=== PATIENT | male | born 1945 | race Caucasian/White ===

== ENCOUNTER 2017-11-16 07:25 | Observation (INO) | payer MEDICARE ==
[2017-11-14 14:49] LABS: BASOPHILS # (AUTO) 0.2 (0.0-0.1); BASOPHILS % 1.6 % (0.0-1.0); EOSINOPHILS # (AUTO) 0.2 (0.0-0.4); EOSINOPHILS % 1.9 % (0.0-6.0); LYMPHOCYTES # (AUTO) 1.6 (1.0-3.2); MEAN CORPUSCULAR HEMOGLOBIN 31.3 pg (28-32); MEAN CORPUSCULAR HGB CONC 33.3 g/dL (31-35); MEAN CORPUSCULAR VOLUME 93.8 fL (81-99); MONOCYTES # (AUTO) 1.4 (0.2-0.8); MONOCYTES % 11.5 % (4.4-11.3); NEUTROPHILS # (AUTO) 8.7 (2.1-6.9); PLATELET COUNT 253 x10e3/uL (140-360); RED BLOOD COUNT 4.16 x10e6/uL (4.3-5.7); RED CELL DISTRIBUTION WIDTH 14.8 % (11.7-14.4)
--- NOTE | 2017-11-14 14:50 | Diagnostic Imaging Report ---
PROCEDURE: Frontal and lateral views of the chest. COMPARISON: Patients [facility], CT, CT CHEST WO, 05/30/2017, 12:33. INDICATIONS: PRE-OP FINDINGS: Lines/tubes: None. Lungs: The lungs are slightly hypo-inflated and grossly clear. There is no evidence of pneumonia or pulmonary edema. Pleura: There is no pleural effusion or pneumothorax. Heart and mediastinum: Cardiac silhouette is unremarkable. Pulmonary vasculature is normal. Bones: No acute bony abnormality. IMPRESSION: 1. No acute cardiopulmonary abnormalities. Asher Honeycutt M.D. Dictated by: Asher Honeycutt M.D. on 11/14/2017 at 14:50 Electronically approved by: Asher Honeycutt M.D. on 11/14/2017 at 14:50
[2017-11-14 15:24] LABS: PROTHROMBIN TIME 12.4 seconds (11.9-14.5)
[2017-11-14 15:25] LABS: PARTIAL THROMBOPLASTIN TIME 28.6 seconds (23.8-35.5)
[2017-11-14 15:32] LABS: ANION GAP 18.9 mmol/L (8-16); CALCIUM 8.8 mg/dL (8.4-10.2); CREATININE, SERUM 1.39 mg/dL (0.72-1.25); POTASSIUM 3.9 mmol/L (3.5-5.1)
[~2017-11-16] VITALS: Ht 170.2 cm; Wt 86.2 kg
[~2017-11-16 07:25] MED LIST: ASPIRIN81 MG PO; BENADRYL25 MG PO; CYMBALTA30 MG PO; FOLIC ACID1 MG PO; LANSOPRAZOLE30 MG PO; LEFLUNOMIDE20 MG PO; METHOTREXATE2.5 MG PO; NIASPAN1000 MG; NORVASC10 MG PO; PREDNISONE5 MG PO; TYLENOL; VANCOMYCIN 1GM/NS 250 ML 250 ML ONE
[2017-11-16] MEDS ORDERED: BUPIVACAINE 0.5%/EPI 30 ML SDV INJ ONE (07:26)
[2017-11-16] MEDS ORDERED: GELATIN SPONGE SZ 100 ONE (07:26)
[2017-11-16] MEDS ORDERED: THROMBIN FOR SOLN 5,000 UNIT VIAL ONE (07:26)
[2017-11-16] MEDS ORDERED: BACITRACIN 50,000 UNIT VIAL ONE (07:26)
--- OUTSIDE RECORDS SUMMARY | 2017-11-16 07:27 | XMS REPORT ---
[facility] Address Unknown Phone Unavailable Care Team Providers Care Lead Section Supervisor Name Role Phone JOHANA MANLEY Unavailable Unavailable ROSA MARIA WEBBER Unavailable Unavailable Problems This patient has no known problems. Allergies, Adverse Reactions, Alerts This patient has no known allergies or adverse reactions. Medications This patient has no known medications. Results Test Description Test Time Test Comments Text Results Atomic Results Result Comments CHEST 2 VIEWS [place] [address] Patient Name: MAYO AKBAR JR MR #: [id number] : 1945 Age/Sex: 72/M Req #: [id number] Adm Physician: Ordered by: JOHANA MANLEY MD Report #: [id number] Location: OR Room/Bed: Procedure: [id number] DX/CHEST 2 VIEWS Exam Date: 11/14/17 Exam Time: 1415 REPORT STATUS: Signed PROCEDURE: Frontal and lateral views of the chest. COMPARISON: [facility], CT, CT CHEST WO, 05/30/2017, 12:33. INDICATIONS: PRE-OP FINDINGS: Lines/tubes: None. Lungs: The lungs are slightly hypo-inflated and grossly clear. There is no evidence of pneumonia or pulmonary edema. Pleura: There is no pleural effusion or pneumothorax. Heart and mediastinum: Cardiac silhouette is unremarkable. Pulmonary vasculature is normal. Bones: No acute bony abnormality. IMPRESSION: 1. No acute cardiopulmonary abnormalities. Ana Maria Honeycutt M.D. Dictated by: Ana Maria Honeycutt M.D. on 11/14/2017 at 14:50 Electronically approved by: Ana Maria Honeycutt M.D. on 11/14/2017 at 14:50 Dictated By: ANA MARIA HONEYCUTT MD 145 Transcribed By: KENTON on 11/14/17 145 COPY TO: JOHANA MANLEY MD CT CHEST WO [place] [address] Patient Name: MAYO AKBAR JR MR #: [id number] : 1945 Age/Sex: 71/M Req #: [id number] Adm Physician: Ordered by: ROSA MARIA WEBBER MD Report #: [id number] Location: CT Room/Bed: _ Procedure: [id number] CT/CT CHEST WO Exam Date: 05/30/17 Exam Time: 1243 REPORT STATUS: Signed PROCEDURE: CT CHEST WITHOUT CONTRAST CT scan of the chest WITHOUT intravenous contrast, using standard protocol. TECHNIQUE: The chest was scanned utilizing a multidetector helical scanner from the apex to the level of the adrenal glands. No IV contrast was administered per physician request. Coronal and sagittal multiplanar reformations were obtained. COMPARISON: CT chest 06/11/2014.. INDICATIONS: RIGHT UPPER EXTREMITY LYMPHADEMA FINDINGS: Lines/tubes: None. Lungs and Airways: Scattered mild nonspecific groundglass opacities in the right upper lobe. Previous left apical pleural-parenchymal scarring is unchanged. Slight increased right parenchymal scarring in the lung apex. Bilateral lower lobe atelectasis with bronchial wall thickening is more pronounced compared to prior examination. 4.4 mm nodule in the right lower lobe laterally (series 3 image 57). Previously 3.1 mm. Pleura: The pleural spaces are clear. Heart and mediastinum: The thyroid gland is normal. The no axillary lymphadenopathy. 1.2 cm precarinal lymph node (series 2 image 38, previously 1.1 cm. Multiple other smaller mediastinal lymph nodes. 1.1 cm subcarinal lymph node (series 2 image 49), previously 0.8 cm. The heart and pericardium are within normal limits. Severe traversal coronary artery calcifications. Soft tissues: Normal. Abdomen: Limited views of the upper abdomen show no abnormality within the visualized liver, spleen, pancreas, or kidneys. The adrenal glands are normal. Bones: The visualized bony thorax is within normal limits. IMPRESSION: 1. Slight increase in bronchial wall thickening and nonspecific groundglass opacities in the right upper lobe, likely infectious/post infectious in etiology. 2. Slight increase in 4.4 mm right lower lobe pulmonary nodule, previously 3.1 mm in 2014. 3. Slight increase size of mediastinal lymph nodes, which can be seen with recent infection. Dictated by: Wilmer Paredes M.D. on 05/30/2017 at 13:08 Electronically approved by: Wilmer Paredes M.D. on 05/30/2017 at 13:08 Dictated By: WILMER PAREDES MD 1308 Transcribed By: KENTON on 05/30/17 1308 COPY TO: ROSA MARIA WEBBER MD
[2017-11-16] MEDS ORDERED: LIDOCAINE HCL (LTA) 4 ML SOLN ONE (07:37)
[2017-11-16] MEDS ORDERED: ACETAMINOPHEN 1000 MG/100 ML 100 ML IV ONE (07:37)
[2017-11-16] MEDS: LACTATED RINGER'S 1,000 ML IV SCH ×2 (09:28→17:48)
[2017-11-16] MEDS ORDERED: VANCOMYCIN 1GM/NS 250 ML 250 ML IV SCH (09:30)
[2017-11-16] MEDS ORDERED: HYDROMORPHONE 2MG/ML INJ IV PRN (09:30)
[2017-11-16] MEDS ORDERED: CARISOPRODOL 350 MG TAB PO PRN (09:30)
[2017-11-16] MEDS ORDERED: PROMETHAZINE HCL (IM) 25 MG/ML VIAL IM PRN (09:30)
[2017-11-16] MEDS ORDERED: ZOLPIDEM TARTRATE 5 MG TAB PO PRN (09:30)
[2017-11-16] MEDS ORDERED: ONDANSETRON HCL INJ 2 MG/ML VIAL IV PRN (09:30)
[2017-11-16] MEDS ORDERED: MAGNESIUM/ALUMINUM/SIMETHICONE 30 ML UDC PO PRN (09:30)
[2017-11-16] MEDS ORDERED: MORPHINE SULFATE 5 MG/ML VIAL IM PRN (09:30)
[2017-11-16] MEDS ORDERED: ACETAMINOPHEN 325 MG TAB PO PRN (09:30)
[2017-11-16] MEDS ORDERED: CEPACOL SORE THROAT LOZENGES PO PRN (09:30)
[2017-11-16 10:00] VITALS: BP 153/79
[2017-11-16 11:06] VITALS: BP 153/79
[2017-11-16] MEDS: OXYCODONE/ACETAMINOPHEN 5-325 1 EACH TABLET PO PRN ×2 (11:30→18:35)
[2017-11-16 12:00] VITALS: BP 149/84
--- NOTE | 2017-11-16 15:10 | Operative Report ---
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 PROCEDURES 1. C3-C4 anterior cervical diskectomy, microsurgical osteophyte resection and allograft fusion, 82424. 2. Preparation of [employer] cortical cancellous allograft, 27633. 3. C3-C4 anterior cervical plating with Synthes ZPN plate, 35920. ANESTHESIA: General. INDICATIONS: The patient is a man who presents with C3-C4 spondylosis, chronic disk herniation, bilateral foraminal stenosis and central stenosis. He was taken to the operating room for C3-C4 anterior cervical decompression and fusion. PROCEDURE: After induction of general anesthesia, the patient was placed on the operating table in the supine position. The right side of the neck was prepped and draped in sterile fashion. The fluoroscopic C-arm was positioned in cross-table lateral orientation. A transverse incision was created on right side of the neck superimposed on the C3-C4 disk space as determined by fluoroscopy. The platysma was divided in line with the incision. A subplatysmal dissection was carried out. An avascular plane of dissection was developed medial to the sternocleidomastoid muscle and was followed medial to the carotid sheath to the anterior border of the cervical spine. The deep cervical fascia was opened. The esophagus was retracted to the left. The attachments of the longus coli muscles to the anterolateral aspects of the vertebral bodies of C3 and C4 were divided. The anterior longitudinal ligament was resected. Sturgis posts were inserted into C3 and C4. The Sturgis distractor was used to distract the disk space. The anterior annulus of the disk was incised a #11 blade. The contents of the C3-C4 disk were thoroughly evacuated with angled curets and pituitary rongeurs. The posterior osteophytes were meticulously drilled with a 2-mm cutting bur on a high-speed drill until they were completely removed. The posterior annulus of the disk, chronically herniated disk material and the posterior longitudinal ligament were resected layer by layer until the dura was fully exposed and decompressed. The medial aspects of the uncinate processes were resected bilaterally to further expose and decompress the origins of the corresponding nerve roots. After satisfactory decompression had been achieved, the endplates were prepared for fusion. The disk space was sized and found to be 7 mm in height. A piece of MTF cortical cancellous allograft measuring 7 mm was selected and prepared in saline and loaded onto a Synthes ZPN plate. The construct was inserted into the C3-4 disk space under distraction and fluoroscopic guidance. The distraction was released. The plate was screwed to the endplates of C3 and C4 with 2 pairs of 14-mm screws. All screws were locked. The wound was copiously irrigated with Bacitracin solution. Hemostasis was secured. The platysma was closed with 3-0 Vicryl sutures. The skin was closed with 4-0 Monocryl sutures in subcuticular fashion. Steri-Strips and dressing were applied. The patient was awakened, extubated and taken to the postanesthesia care unit in stable condition. No intraoperative complications were encountered. Estimated blood loss was 10 mL. Job#: [id number]
[2017-11-16 16:33] VITALS: BP 157/86
[2017-11-16] MEDS ORDERED: NON-FORMULARY MEDICATION (Lansoprazole 30 MG) PO SCH (17:00)
[2017-11-16] MEDS ORDERED: DULOXETINE HCL 30 MG DELAYED RELEASE PO SCH (17:00)
[2017-11-16] MEDS: VANCOMYCIN 1GM/NS 250 ML 250 ML IV SCH (18:01)
[2017-11-16] MEDS ORDERED: PROPOFOL IV EMULSION 10 MG/ML 20 ML VIAL ONE (18:08)
[2017-11-16] MEDS ORDERED: ACETAMINOPHEN 1000 MG/100 ML IV ONE (18:08)
[2017-11-16] MEDS ORDERED: DEXAMETHASONE SOD PHOS INJ 4 MG/ML VIAL ONE (18:08)
[2017-11-16] MEDS ORDERED: ROCURONIUM BROMIDE 10 MG/ML 5ML VIAL ONE (18:08)
[2017-11-16] MEDS ORDERED: SEVOFLURANE INHAL SOLN 250 ML PEN BTL ONE (18:08)
[2017-11-16] MEDS ORDERED: ONDANSETRON HCL INJ 2 MG/ML VIAL ONE (18:08)
[2017-11-16] MEDS ORDERED: LIDOCAINE HCL 2% LOCAL INJ 5 ML SDV VIAL INJ ONE (18:08)
[2017-11-16] MEDS ORDERED: FENTANYL CITRATE/PF 100MCG/2 ML INJ ONE (18:54)
[2017-11-16] MEDS ORDERED: MIDAZOLAM HCL 2 MG/2 ML VIAL ONE (18:54)
[2017-11-16 20:00] VITALS: BP 152/87
[2017-11-16 20:32] VITALS: BP 152/87
[2017-11-16] MEDS ORDERED: DIPHENHYDRAMINE HCL 25 MG CAP PO SCH (21:00)
[2017-11-16] MEDS ORDERED: NON-FORMULARY MEDICATION (Leflunomide 20 MG) PO SCH (21:00)
[2017-11-17] VITALS: BP 160/88
[2017-11-17] MEDS: LACTATED RINGER'S 1,000 ML IV SCH (02:08)
[2017-11-17 04:00] VITALS: BP 138/75
[2017-11-17] MEDS: VANCOMYCIN 1GM/NS 250 ML 250 ML IV SCH (06:05)
--- NOTE | 2017-11-17 06:56 | Diagnostic Imaging Report ---
PROCEDURE: X-RAY CERVICAL SPINE, TWO VIEWS COMPARISON:None. INDICATIONS:s/p surgery FINDINGS: See conclusion. CONCLUSION: AP and lateral views of the cervical spine from the skull base to the top of T1 show postoperative changes at C3-4 with an anterior plate and screw construct/disc spacer. Hardware appears appropriately positioned. The visualized vertebral bodies are well-aligned with the exception of 3 mm degenerative anterolisthesis of C5 over C6 with associated degenerative disc changes at C5-6 and C6-7.. There is mild pre-vertebral soft-tissue swelling consistent with recent surgery. Dictated by: Kai Barnhart M.D. on 11/17/2017 at 6:57 Electronically approved by: Kai Barnhart M.D. on 11/17/2017 at 6:57
[2017-11-17] MEDS ORDERED: PANTOPRAZOLE SOD 40 MG TABEC PO SCH (07:30)
[2017-11-17 07:56] VITALS: BP 161/86
[2017-11-17] MEDS ORDERED: NORCO 7.5-3251 EACH PO (08:23)
[2017-11-17] MEDS ORDERED: FOLIC ACID 1 MG TAB PO SCH (09:00)
[2017-11-17] MEDS ORDERED: AMLODIPINE BESYLATE 10 MG TAB PO SCH (09:00)
[2017-11-17] MEDS ORDERED: LEFLUNOMIDE PO SCH (09:00)
[2017-11-17] MEDS ORDERED: ASPIRIN 81 MG CHEW TAB PO SCH (09:00)
== END 2017-11-17 09:24 | disposition home or self-care (01) ==
LOC: OR 07:25 → MED/SURG 09:53
PROVIDERS: ADMIT Neurological Surgery; ATTEND Neurological Surgery
DX: M50.11 Cervical disc disorder with radiculopathy, high cervical region (principal); I10 Essential (primary) hypertension; E78.5 Hyperlipidemia, unspecified; J45.909 Unspecified asthma, uncomplicated; Z87.891 Personal history of nicotine dependence; Z88.1 Allergy status to other antibiotic agents; Z88.0 Allergy status to penicillin; Z88.8 Allergy status to other drugs, medicaments and biological substances; Z88.2 Allergy status to sulfonamides; Z91.041 Radiographic dye allergy status
CPT/HCPCS: 20931; 22551; 22845; 36415; 71046; 72040; 77003; 80048; 85025; 85610; 85730; 86850; 86900; 88304; 88311; 93005; C1713 ×2; C9359; G0378 ×2; J1100; J2001; J2250; J2405; J3370 ×2; J2270

== ENCOUNTER → 2017-12-18 | Outpatient (CLI) | payer MEDICARE ==
[~2017-12-18] MED LIST changes: +NORCO 7.5-3251 EACH PO; -VANCOMYCIN 1GM/NS 250 ML 250 ML ONE
--- NOTE | 2017-12-18 11:45 | Diagnostic Imaging Report ---
PROCEDURE: C-SPINE AP AND LAT WITH FLEX AND EXT COMPARISON: 11/18/2017 INDICATIONS: POST CERVICAL SPINE SURGERY FINDINGS: C1 through C7 are visualized on the lateral view. Status post anterior discectomy and fusion of C3-C4 with transfixing screws which are intact and in adequate alignment. Redemonstrated is 3 mm of degenerative anterolisthesis of C5 on C6 without hypermobility on extension. Degenerative changes of C5-C6 and C6-C7 are again noted. The degree of prevertebral soft tissue swelling is decreased since the prior examination. CONCLUSION: Status post anterior fusion of C3-C4. Intact hardware with adequate alignment. Mild degenerative anterolisthesis of C5 on C6 without evidence of hypermobility on flexion and extension views. Dictated by: Adonis Latif M.D. on 12/18/2017 at 11:46 Electronically approved by: Adonis Latif M.D. on 12/18/2017 at 11:46
== END | disposition home or self-care (01) ==
LOC: RAD 10:56
PROVIDERS: ATTEND Neurological Surgery
DX: M47.812 Spondylosis without myelopathy or radiculopathy, cervical region (principal); M43.12 Spondylolisthesis, cervical region; Z98.1 Arthrodesis status
CPT/HCPCS: 72050

== ENCOUNTER 2024-11-24 11:48 | Emergency (ER) | payer MEDICARE ==
[~2024-11-24] VITALS: Ht 170.2 cm; Wt 86.2 kg
[2024-11-24 11:56] VITALS: TEMP 98.3
[2024-11-24 13:57] LABS: BASOPHILS # (AUTO) 0.4 (0.0-0.1); EOSINOPHILS # (AUTO) 0.8 (0.0-0.4); EOSINOPHILS % 3.7 % (0.0-6.0); HEMATOCRIT 39.7 % (38.2-49.6); HEMOGLOBIN 12.3 g/dL (14.0-18.0); LYMPHOCYTES % 9.2 % (18.0-39.1); MEAN CORPUSCULAR HEMOGLOBIN 28.1 pg (28-32); MEAN CORPUSCULAR VOLUME 90.8 fL (81-99); MONOCYTES # (AUTO) 1.6 (0.2-0.8); MONOCYTES % 7.6 % (4.4-11.3); NEUTROPHILS # (AUTO) 15.7 (2.1-6.9); NEUTROPHILS % 73.9 % (38.7-80.0); PLATELET COUNT 692 x10e3/uL (140-360); RED BLOOD COUNT 4.37 x10e6/uL (4.3-5.7); RED CELL DISTRIBUTION WIDTH 15.7 % (11.7-14.4); WHITE BLOOD COUNT 21.27 x10e3/uL (4.8-10.8)
[2024-11-24 14:02] LABS: CLARITY,URINE CLEAR (CLEAR); COLOR,URINE YELLOW (YELLOW); LEUKOCYTE ESTERASE ,URINE NEGATIVE (NEGATIVE); NITRITE,URINE NEGATIVE (NEGATIVE); PH,URINE 6.5 (5 - 7)
[2024-11-24 14:03] LABS: BILIRUBIN,URINE NEGATIVE (NEGATIVE); GLUCOSE, URINE NEGATIVE (NEGATIVE); KETONES,URINE NEGATIVE (NEGATIVE); PROTEIN,URINE DIPSTICK 2+ (NEGATIVE); URINE UROBILINOGEN 0.2 mg/dL (0.2 - 1)
[2024-11-24 14:11] LABS: BACTERIA,URINE RARE /HPF; EPITHELIAL CELLS,URINE FEW /LPF; HYALINE CASTS 0-1 (0-1); MUCUS,URINE FEW; WBC,URINE (MAN) 0-5 /HPF (0-5)
[2024-11-24 14:12] LABS: AMORPHOUS SEDIMENT,URINE FEW
[2024-11-24 14:25] LABS: INR 1.03; PROTHROMBIN TIME 14.1 seconds (11.9-14.5)
[2024-11-24 14:26] LABS: PARTIAL THROMBOPLASTIN TIME 37.8 seconds (23.8-35.5)
[2024-11-24 14:35] LABS: ALBUMIN 3.9 g/dL (3.5-5.0); ALBUMIN/GLOBULIN RATIO 1.1 (0.8-2.0); ANION GAP 16.6 mmol/L (8-16); BILIRUBIN,TOTAL 0.7 mg/dL (0.2-1.2); CALCIUM 9.6 mg/dL (8.4-10.2); CREATININE, SERUM 2.5 mg/dL (0.72-1.25); MAGNESIUM 1.9 MG/DL (1.3-2.1); POTASSIUM 4.6 mmol/L (3.5-5.1); TOTAL PROTEIN 7.5 g/dL (6.5-8.1)
[2024-11-24 14:41] LABS: TROPONIN I 0.005 ng/mL (0-0.300)
[2024-11-24 14:55] VITALS: PULSE 75; RESP 12; O2SAT 97
[2024-11-24] MEDS ORDERED: SODIUM CHLORIDE 0.9% 500ML 500 ML ONE (15:14)
[2024-11-24] MEDS: SODIUM CHLORIDE 0.9% 500ML 500 ML IV ONE (15:22)
[2024-11-24] MEDS: LEVETIRACETAM 1500 MG/100 ML 100 ML IV ONE (15:22)
[2024-11-24] MEDS: DEXAMETHASONE SOD PHOS 10 MG/1 ML VIAL IV ONE (15:22)
== END 2024-11-24 16:45 | disposition other institution (70) ==
LOC: ER 12:14
DX: R53.1 Weakness (principal); G93.9 Disorder of brain, unspecified; D75.839 Thrombocytosis, unspecified; D72.829 Elevated white blood cell count, unspecified; N28.9 Disorder of kidney and ureter, unspecified
CPT/HCPCS: 36415; 70450; 71045; 72125; 80053; 81001; 82550; 83735; 84484; 85025; 85610; 85730; 87086; 93005; 99284; J1100; J7040